=== PATIENT | male | born 1975 | race Caucasian/White ===

== ENCOUNTER 2016-08-06 06:49 | Day surgery (SDC) | payer OTHER ==
[~2016-08-06] VITALS: Ht 182.9 cm; Wt 86.2 kg
[~2016-08-06 06:49] MED LIST: ANUSOL-HC 2.5%30 GM RC; DEXILANT60 MG PO
[2016-08-06 08:10] VITALS: BP 120/79; Ht 182.9 cm; Wt 86.2 kg
--- NOTE | 2016-08-06 09:56 | NUR ---
MARIAN PAD LEFT THIGH EXP 02-19-19
--- NOTE | 2016-08-06 14:39 | NUR ---
1150 REPORT TO AMAPRO SALEEM RN
--- NOTE | 2016-08-06 14:40 | NUR ---
1415 REPORT FROM AMPARO SALEEM RN
--- NOTE | 2016-08-22 09:40 | OP ---
PATIENT NAME: MOOKIE NEELY MEDICAL RECORD: [id number] :71 LOCATION:D.FORMERLY [facility] ADMISSION DATE: SURGEON: CHIOMA FRANK MD DATE OF OPERATION: 08/06/2016 PREOPERATIVE DIAGNOSES: 1. Intractably symptomatic external hemorrhoids with anal prolapse, third degree. 2. Hematochezia. POSTOPERATIVE DIAGNOSES: 1. Intractably symptomatic external hemorrhoids with anal prolapse, third degree. 2. Hematochezia. 3. Posterior line anal fissure, mature, chronic. PROCEDURES: 1. Anal evaluation under anesthesia. 2. Procedure for prolapse and hemorrhoids. 3. Lateral internal sphincterotomy. SURGEON: Chioma Frank MD. ANALYTICS LEADER: None. BLOOD LOSS: Minimal. ANESTHESIA: General. COMPLICATIONS: None. The risks, possible complications and alternatives to procedure were explained to the patient. He elects to proceed. The discussion specifically included, but was not limited to, bleeding requiring an emergency reoperation, infection, possible need for additional hemorrhoidal procedures. OPERATIVE COURSE: The patient was conveyed to the operating room electively on 08/06/2016. General anesthesia was induced by the anesthesia staff. The patient was placed in lithotomy position with the buttocks taped laterally. The anus and perianal areas were sterilely prepped and draped. An anal dilator retractor was then placed. The retractor was sewn in place to the surrounding anoderm with 2-0 silk sutures. A mucosal pursestring suture of 2-0 Prolene was then applied 1 cm cephalad to the clear retractor. The PPH stapling device was inserted with the anvil cephalad to the pursestring suture, which was then tightened and tied. The stapling device was engaged. It was held in place for 2 minutes and then fired. It was then removed under direct vision. There was an entire donut of lower rectal and internal hemorrhoidal tissue within the stapling device. Bleeding along the anastomotic staple line was controlled with [id number] 3-0 Vicryls. I oversewed the anal fissure with a single 3-0 Vicryl suture. At 3 o'clock, overlying the internal sphincteric muscle, an incision was accomplished. I dissected bluntly down through the muscle. I then incised about a third to half of the internal sphincteric OPERATIVE REPORT [id number] CHIN,MOOKIE P muscle. The rectal mucosa and anal mucosa were then closed with a running locking 3-0 Vicryl suture. Gelfoam was applied within the anus and lower rectum. Marcaine was then used to infiltrate the perianal tissues. A topical anesthetic was applied to the external hemorrhoids. The patient was then extubated and conveyed to the post-anesthesia care unit where he was in the stable condition. He will be dismissed home on [place] as well as Valium and [place]. I will see him in the office in 2-3 weeks. TRANSINT:[id number] Voice Confirmation ID: [id number] DOCUMENT ID: [id number] CHIOMA FRANK MD at 0940 CC: CARLTON FLORES MD [id number] DICTATION DATE: 08/06/16 1119 INSPECTOR SHEET METAL PARTS: 08/06/16 1612 [facility] 08/06/16 [id number] [place] [address]
== END 2016-08-06 15:35 | disposition home or self-care (01) ==
LOC: D.OPS 06:49 → D.PAN 12:00 → D.OPS 12:00
DX: K64.2 Third degree hemorrhoids (principal); K92.1 Melena; K60.1 Chronic anal fissure